=== PATIENT | female | born 1975 | race Caucasian/White ===

== ENCOUNTER 2018-11-26 08:35 | Observation (INO) ==
[2018-11-26] MEDS ORDERED: OXYCODONE Oral CONC 10 MG/0.5 ML ORAL.SYG SL ONE (09:52)
[2018-11-26] MEDS ORDERED: cefOXitin 2,000 MG in Water for inj. (sterile) 20 ML 20 ML IVP ONE (09:57)
[2018-11-26] MEDS ORDERED: Ketorolac 15 MG/ML VIAL IVP ONE (09:57)
[2018-11-26] MEDS ORDERED: 0.9 % Sodium Chloride 1,000 ML IVC SCH ×2 (10:00→19:09)
--- NOTE | 2018-11-26 13:45 | Event Note ---
Date of Encounter: 11/26/18 Time of Encounter: 13:42 - Patient Status Disposition: Home, Self-Care - Discharge Instructions Instructions: Laparoscopic Cholecystectomy (DC) Follow Up With: Fara Farmer DO [Primary Care Provider] - Kelle Quinones CNP [Advanced Practice Nurse] - 12/10/18 2:45 pm Additional Instructions: General Surgical Discharge Instructions 1. No pushing, pulling, or lifting greater than 15 lbs for 2 weeks. 2. You may shower beginning today, but no tub baths, soaking, or swimming for 2 weeks. 3. You may resume driving when you are off narcotics and are safe to react in a car. 4. Take ibuprofen every 8 hours for discomfort. If this does not relieve discomfort, you may take the as needed Percocet. Take narcotics as directed. Do not take more narcotics then directed and do not share your narcotics with any other person. Do not drink alcohol while on narcotics. 5. Take stool softeners (Colace) or a water based laxative (Miralax) while taking narcotics. You may hold for loose stools. 6. Report any fevers greater than 100.5F, increase abdominal discomfort, drainage that looks like pus, increased redness or pain at the surgical site, or any vomiting. 7. Report any pain in the calves, shortness of breath, or rapid heartbeat. 8. Follow-up in the office as directed. 9. If you were prescribed antibiotics, do not stop them without talking to your provider. - Diet and Activity Activity: increase activity as tolerated Diet: advance to your usual diet
[2018-11-26] MEDS ORDERED: *HR* Promethazine 25 MG/ML VIAL IVP PRN ×2 (13:50→18:11)
[2018-11-26] MEDS ORDERED: Ondansetron 4 MG/2 ML VIAL IVP PRN ×2 (13:50→19:09)
[2018-11-26] MEDS ORDERED: Naloxone 0.4 MG/ML INJ IVP PRN (13:50)
[2018-11-26] MEDS ORDERED: OXYCODONE Oral CONC 10 MG/0.5 ML ORAL.SYG SL PRN (13:50)
--- NOTE | 2018-11-26 13:55 | General Surg History&Physical ---
Date of Encounter: 11/26/18 Time of Encounter: 10:00 Assessment and Plan (1) Acute cholecystitis Current Visit: Yes Status: Acute The assessment and plan as outlined above was discussed with the patient and/or family members who expressed understanding and agreement. All questions were answered. Patient directed budgeted from office by Dr. Eldridge for acute cholecystitis with plans for robotic cholecystectomy with ICG choliangiogram today. Risks, shanta efits, and expected outcomes were reviewed with the patient by Dr. Eldridge in the office and she is agreeable to proceed. See hard chart for her H&P. Plan: NPO IV fluids IV antibiotics supportive care and discomfort management G.I. and DVT prophylaxis History of Present Illness HPI: Ms. Bolivar is a 43 year old female Past Med Surg Social Fam HX - Past Medical History Medical history: no medical history, other Additional medical history: celiac. gastroparesis. gerd. microscopic cholitis Psychiatric history: anxiety - Past Surgical History Additional surgical history: bladder surgery, tubal ligation, right wrist surgery - Social History Smoking Status: Never smoker Alcohol use: none Drug use: none - Family History Mother Age: 61 Living Status: Still Living Hx Family Cardiac Disorders: Yes (htn) Hx Family Musculoskeletal Disorders: Yes (fibromyalgia) Medications and Allergies Hyoscyamine SL [Levsin SL] 0.125 mg SL TID #14 tab.subl 11/24/18 [Rx] Promethazine [Phenergan] 12.5 mg PO Q6HR #6 tablet 11/24/18 [Rx] Buspirone HCl [Buspar] 10 mg PO BID 11/26/18 [History] Allergy/AdvReac Type Severity Reaction Status Date / Time No Known Allergies Allergy Verified 11/26/18 09:21 Review of Systems All systems PM: The remainder of the systems were reviewed and are negative General Surgery Exam Initial Vital Signs Temp Pulse Resp BP Pulse Ox 98.2 F 144 20 107/84 96 11/26/18 09:07 11/26/18 09:07 11/26/18 09:07 11/26/18 09:07 11/26/18 09:07 Results - Labs All other labs normal.
[2018-11-26] MEDS ORDERED: Pantoprazole 40 MG VIAL IVP SCH (14:00)
[2018-11-26] MEDS ORDERED: Isovue-300 50 ML VIAL ONE (15:31)
[2018-11-26] MEDS ORDERED: *HR* Propofol 200 MG/20 ML VIAL IVP ONE (15:37)
[2018-11-26] MEDS ORDERED: Dexamethasone 4 MG/ML VIAL ONE (15:37)
[2018-11-26] MEDS ORDERED: Lidocaine -MPF 2% 2 ML VIAL ONE (15:37)
[2018-11-26] MEDS ORDERED: *HR* FentaNYL (PF) 100 MCG/2 ML VIAL ONE (15:37)
[2018-11-26] MEDS ORDERED: *HR* Rocuronium Bromide 50 MG/5 ML VIAL ONE (15:37)
[2018-11-26] MEDS ORDERED: *HR* Midazolam HCl 2 MG/2 ML VIAL ONE (15:37)
[2018-11-26] MEDS ORDERED: Lidocaine -MPF 4% 5 ML AMPUL ONE (15:37)
[2018-11-26] MEDS ORDERED: *HR* Succinylcholine 200 MG/10 ML VIAL IVP ONE (15:37)
[2018-11-26 15:42] LABS: Basophils % 0.1 %; Eosinophils % 0.2 %; Hematocrit 39.6 % (35.3-44.9); Immature Granulocytes % 0.6 % (0-4); Lymphocytes # 2.3 K/mcL (0.6-4.6); Lymphocytes % 11.4 %; Mean Corpuscular HGB Conc 32.8 g/dL (31.6-35.5); Mean Corpuscular Hemoglobin 29.9 pg (28.0-33.3); Mean Platelet Volume 9.2 fL (9.4-12.4); Monocytes # 1.5 K/mcL (0.0-1.3); Monocytes % 7.3 %; Neutrophils # 16.2 K/mcL (1.6-8.9); Platelet Count 306 K/mcL (140-400); Red Blood Count 4.35 M/mcL (3.82-4.97); Red Cell Distribution Width 13.8 % (11.5-14.5); Segmented Neutrophils % 80.4 %
[2018-11-26 15:49] LABS: INR 1.4
[2018-11-26 15:58] LABS: BUN/Creatinine Ratio 14 (6-26); Blood Urea Nitrogen 10 mg/dL (6-20); Calcium 8.9 mg/dL (8.6-10.3); Carbon Dioxide 27 mEq/L (23-29); Chloride 101 mEq/L (98-107); Glucose 93 mg/dL (70-105); Osmolality,Calculated 277 (280-300); Potassium 3.4 mEq/L (3.5-5.1); Sodium 134 mEq/L (136-145); eGFR For Non-African Americans > 60 (> 60)
--- NOTE | 2018-11-26 16:44 | Anesthesia Evaluation PreOp ---
Date of Encounter: 11/26/18 Time of Encounter: 16:42 - Past History Planned Operation: Lap cholecystectomy Cardiac History: Denies any Significant Hx Pulmonary History: Denies Any Significant HX BARNWORKER GROOM History: Denies Any Significant HX Other Medical History: GERD, Other (celiac disease, gastroparesis) Anesthesia History: No Prior Anesthetic Complications (except combative after her wrist surgery) Alcohol Use: none Drug use: none Medications and Allergies Hyoscyamine SL [Levsin SL] 0.125 mg SL TID #14 tab.subl 11/24/18 [Rx] Promethazine [Phenergan] 12.5 mg PO Q6HR #6 tablet 11/24/18 [Rx] Buspirone HCl [Buspar] 10 mg PO BID 11/26/18 [History] Allergy/AdvReac Type Severity Reaction Status Date / Time No Known Allergies Allergy Verified 11/26/18 09:21 - Meds/Allergy Pre-op Review Medications Reviewed: Yes Allergies Reviewed: Yes Beta Blockers on Current Med List: No Anesthesia Results - Labs 11/26/18 15:18 11/26/18 15:18 Anesthesia Exam Last Vital Signs Temp 98.9 F 11/26/18 14:15 Pulse 109 11/26/18 14:15 Resp 18 11/26/18 14:15 BP 107/48 11/26/18 14:15 Pulse Ox 97 11/26/18 14:15 Weight: 97 kg NPO (# of Hours): > 8 hrs - HEENT Pupil (Motor): Pupils equal, EOMI Mallampati: III Teeth: Normal Oral Opening: Greater than 3 - BARNWORKER GROOM LOC: Oriented - Cardiac Rhythm: Regular Murmur: None - Pulmonary Breath Sounds: bilateral Clear Respiratory Effort: Symmetrical Anesthesia Assess/Plan ASA Score: 2 Level of consciousness: Cooperative Anesthetic Plan: General Monitoring Plan: Standard Monitors Recovery Plan: PACU
[2018-11-26] MEDS ORDERED: Neostigmine Methylsulfate 3 MG/3 ML SYRINGE ONE (17:02)
[2018-11-26] MEDS ORDERED: *HR* PHENYLEPHRINE 1,000 MCG/10 ML SYRINGE IVP ONE (17:04)
--- NOTE | 2018-11-26 17:48 | Operative Note ---
Date of procedure: 11/26/18 Pre-op diagnosis: Acute cholecystitis Post-op diagnosis: same Procedure: Laparoscopic cholecystectomy with cholangiogram Anesthesia: PRAVEENA Surgeon: Raymundo Eldridge Was there an sales assistants and salespersons present: Yes Roll Former: Neeru Dewey Estimated blood loss (cc): 5 Specimen: Gallbladder Condition: stable Disposition: same day Procedure in Detail: After informed consent, the patient was taken the operating room placed in the supine position. After adequate sedation and anesthesia the abdomen was prepped and draped. A pneumoperitoneum was created. A 5 mm cannulas placed leveling umbilicus. A 12 mm cannulas placed subxiphoid region. 25 mm cannulas were placed in the right upper quadrant. The gallbladder was identified, retracted anteriorly and cephalad. Infundibulum was dissected free. Cystic duct was skeletonized. A clip was placed distally and a duct ostomy was created. A cholangiogram was then performed through a taut catheter. Cholangiogram revealed flow into the common hepatic duct and hepatic radicals followed by flow into the common bile duct and eventually the duodenum. There are no stones identified. At this point the cholangiogram was terminated the clip was removed and the taut catheter was then removed. 2 clips are placed proximally and the duct was transected. Gallbladder was then resected free off the liver surface. It was placed in an endoscopic pouch. This is removed through the umbilical port. Hemostasis was obtained the liver bed. 19-Polish Caio drain was placed in the right upper quadrant secondary to the purulent material coming from the gallbladder. This brought out through the right upper quadrant port. Subxiphoid port was closed with 0 Vicryl suture in [id number] fashion. Skin was closed with 4-0 Vicryl suture. Incisions were injected with half percent Marcaine 30 mL's.
[2018-11-26] MEDS ORDERED: *HR* Heparin 5,000 UNIT/ML VIAL SQ SCH (18:00)
[2018-11-26] MEDS ORDERED: *HR* OxyCODONE Immed Rel 5 MG TABLET PO PRN (18:11)
[2018-11-26] MEDS ORDERED: Ringers Solution, Lactated 1,000 ML ONE (18:12)
--- NOTE | 2018-11-26 18:38 | Anesthesia Evaluation Post Op ---
Date of Encounter: 11/26/18 Time of Encounter: 18:38 - Vital Signs Vital Signs: Vital Signs/O2 Sat, Most Current Temp Pulse Resp BP Pulse Ox 101.2 F H 106 20 118/72 95 11/26/18 18:30 11/26/18 18:30 11/26/18 18:30 11/26/18 18:30 11/26/18 18:30 - Lungs Lungs: Clear Ascult./Percussion - Airway Airway: Non-obstructed - Cardiovascular Regular Rate - Mental Status Mental Status: Alert & Oriented, Answers Appropriately - Pain Pain Scale: 0 Pain Scale used: Numeric (1 - 10) - Nausea Vomiting Nausea Vomiting: Not Present - Hydration Hydration: Ice chips, Has not voided - Discharge PostOp Status: Transfer Patient to floor
[2018-11-26] MEDS: OXYCODONE Oral CONC 10 MG/0.5 ML ORAL.SYG SL PRN (20:40)
[2018-11-26] MEDS ORDERED: *HR* HYDROmorphone 2 MG/ML SYRINGE IVP PRN (22:10)
[2018-11-26] MEDS ORDERED: Ketorolac 30 MG/ML VIAL IVP ONE (22:12)
[2018-11-26] MEDS ORDERED: 0.9 % Sodium Chloride 1,000 ML IVC ONE (22:12)
[2018-11-26] MEDS ORDERED: Ketorolac 15 MG/ML VIAL IVP PRN (22:13)
[2018-11-26] MEDS: Ampicillin/Sulbactam 3,000 MG in 0.9 % Sodium Chloride Mini Bag 100 ML IVPB SCH (23:05)
[2018-11-27] MEDS: OXYCODONE Oral CONC 10 MG/0.5 ML ORAL.SYG SL PRN (05:20)
[2018-11-27] MEDS: *HR* Heparin 5,000 UNIT/ML VIAL SQ SCH ×2 (05:21→17:58)
[2018-11-27] MEDS: Ampicillin/Sulbactam 3,000 MG in 0.9 % Sodium Chloride Mini Bag 100 ML IVPB SCH ×4 (05:25→23:58)
[2018-11-27] MEDS: Pantoprazole 40 MG VIAL IVP SCH (08:59)
--- NOTE | 2018-11-27 09:05 | General Surgery Progress Note ---
Date of Encounter: 11/27/18 Time of Encounter: 08:45 - Assessment and Plan (1) Acute cholecystitis Current Visit: Yes Status: Acute POD #[address] Eldridge IV fluids- 80ml/hour IV antibiotics- Unasyn Continue DILMA drain- drain education Gluten free diet Repeat CBC, BMP now Supportive care and pain control- prn Percocet added IS every 1 hour while awake Ambulate hallways TID with assistance Strict I&Os (2) DVT prophylaxis Current Visit: Yes Status: Acute Heparin 5,000 units SQ twice daily for DVT prophylaxis Ambulate hallways TID with assistance Subjective Patient reports: no new complaints, feels better, still having pain, pain is less, tolerating a regular diet, voiding w/o difficulty, no flatus, no bowel movement, fever (Tmax 101.8; Tcurrent 97.9) Objective Vital Signs - Last 8 Hours Temp Pulse Resp BP Pulse Ox 11/27/18 05:25 97.9 F 96 18 99/61 94 Intake and Output 11/26/18 11/27/18 11/27/18 23:59 07:59 15:59 Intake Total 574 / 574 Output Total 235 / 235 275 / 275 Balance 339 / 339 -275 / -275 Intake: IV Fluids 100 / 100 Unasyn 3,000 MG In 0.9 % Sodium 100 / 100 Chloride (Mini-Bag +) 100 ML @ 200 mls/hr IVPB Q6HR [facility] Rx#: [id number] Oral 474 / 474 Output: Urine 250 / 250 Estimated Blood Loss 50 / 50 Other 30 / 30 Wound Drainage 155 / 155 25 / 25 Right Abdomen 20 / 20 25 / 25 Other: # Voids 1 - General physical appearance well developed, well nourished, no distress, obese - Eyes normal ocular movement - ENT normal mucosa, atraumatic, normocephalic - Neck Neck exam: trachea midline - Respiratory normal respiratory effort, clear to auscultation, other (diminished bibasilar bases) - Cardiovascular Cardiovascular exam: Present: tachycardia - Abdomen Abdomen: Present: bowel sounds present, soft, tender (expected post-operative tenderness), wound (DILMA drain to bulb suction RUQ with sanguineous drainage noted) - Incision Incision: Present: clean and dry, intact - Neurologic CN 2-12 grossly intact - Psychiatric oriented to time, oriented to person, oriented to place, speech is normal, memory intact - Labs 11/26/18 15:18 11/26/18 15:18 Diabetes panel 11/26/18 Range/Units 15:18 Sodium 134 L (136-145) mEq/L Potassium 3.4 L (3.5-5.1) mEq/L Chloride 101 (98-107) mEq/L Carbon Dioxide 27 (23-29) mEq/L BUN 10 (6-20) mg/dL Creatinine 0.73 (0.60-1.20) mg/dL Glucose 93 (70-105) mg/dL Calcium 8.9 (8.6-10.3) mg/dL Calcium panel 11/26/18 Range/Units 15:18 Calcium 8.9 (8.6-10.3) mg/dL Pituitary panel 11/26/18 Range/Units 15:18 Sodium 134 L (136-145) mEq/L Potassium 3.4 L (3.5-5.1) mEq/L Chloride 101 (98-107) mEq/L Carbon Dioxide 27 (23-29) mEq/L BUN 10 (6-20) mg/dL Creatinine 0.73 (0.60-1.20) mg/dL Glucose 93 (70-105) mg/dL Calcium 8.9 (8.6-10.3) mg/dL Adrenal panel 11/26/18 Range/Units 15:18 Sodium 134 L (136-145) mEq/L Potassium 3.4 L (3.5-5.1) mEq/L Chloride 101 (98-107) mEq/L Carbon Dioxide 27 (23-29) mEq/L BUN 10 (6-20) mg/dL Creatinine 0.73 (0.60-1.20) mg/dL Glucose 93 (70-105) mg/dL Calcium 8.9 (8.6-10.3) mg/dL - VTE Documentation of Mechanical Device: Intermittent pneumatic compression device Consult Discharge Plan - Plan Instructions: Laparoscopic Cholecystectomy (DC) Additional Instructions: General Surgical Discharge Instructions 1. No pushing, pulling, or lifting greater than 15 lbs for 2 weeks. 2. You may shower beginning today, but no tub baths, soaking, or swimming for 2 weeks. 3. You may resume driving when you are off narcotics and are safe to react in a car. 4. Take ibuprofen every 8 hours for discomfort. If this does not relieve discomfort, you may take the as needed Percocet. Take narcotics as directed. Do not take more narcotics then directed and do not share your narcotics with any other person. Do not drink alcohol while on narcotics. 5. Take stool softeners (Colace) or a water based laxative (Miralax) while taking narcotics. You may hold for loose stools. 6. Report any fevers greater than 100.5F, increase abdominal discomfort, drainage that looks like pus, increased redness or pain at the surgical site, or any vomiting. 7. Report any pain in the calves, shortness of breath, or rapid heartbeat. 8. Follow-up in the office as directed. 9. If you were prescribed antibiotics, do not stop them without talking to your provider. Referrals: Kelle Quinones, LYN [Advanced Practice Nurse] - 12/10/18 2:45 pm Fara Farmer DO [Primary Care Provider] - - Attending Attestation For this encounter, I have reviewed the DELIVERY LEAD or PA documentation, treatment plan, and medical decision making; and I have had face to face time with this patient.
[2018-11-27] MEDS: *HR* OxyCODONE/APAP 5/325 TABLET PO PRN ×3 (10:32→20:18)
[2018-11-27 12:10] LABS: Basophils % 0.1 %; Hematocrit 33.1 % (35.3-44.9); Immature Granulocytes % 0.7 % (0-4); Lymphocytes # 1.7 K/mcL (0.6-4.6); Lymphocytes % 8.9 %; Mean Corpuscular HGB Conc 32.6 g/dL (31.6-35.5); Mean Corpuscular Hemoglobin 29.8 pg (28.0-33.3); Mean Corpuscular Volume 91.2 fL (83.0-100.0); Mean Platelet Volume 9.4 fL (9.4-12.4); Monocytes # 1.1 K/mcL (0.0-1.3); Monocytes % 5.6 %; Neutrophils # 16.3 K/mcL (1.6-8.9); Platelet Count 307 K/mcL (140-400); Red Blood Count 3.63 M/mcL (3.82-4.97); Segmented Neutrophils % 84.7 %
[2018-11-27 12:15] LABS: Hemoglobin 10.8 g/dL (11.5-15.4)
[2018-11-27 12:31] LABS: BUN/Creatinine Ratio 16 (6-26); Blood Urea Nitrogen 10 mg/dL (6-20); Calcium 8.5 mg/dL (8.6-10.3); Carbon Dioxide 25 mEq/L (23-29); Chloride 106 mEq/L (98-107); Glucose 120 mg/dL (70-105); Osmolality,Calculated 288 (280-300); Potassium 3.9 mEq/L (3.5-5.1); Sodium 139 mEq/L (136-145); eGFR For Non-African Americans > 60 (> 60)
[2018-11-27] MEDS ORDERED: 0.9 % Sodium Chloride 1,000 ML IVC SCH (14:02)
[2018-11-28] MEDS: *HR* OxyCODONE/APAP 5/325 TABLET PO PRN ×2 (02:59→08:13)
[2018-11-28] MEDS: *HR* Heparin 5,000 UNIT/ML VIAL SQ SCH (05:47)
[2018-11-28] MEDS: Ampicillin/Sulbactam 3,000 MG in 0.9 % Sodium Chloride Mini Bag 100 ML IVPB SCH ×2 (05:48→12:08)
[2018-11-28 06:17] LABS: Basophils % 0.1 %; Eosinophils % 0.3 %; Hematocrit 30.1 % (35.3-44.9); Hemoglobin 9.7 g/dL (11.5-15.4); Immature Granulocytes % 0.4 % (0-4); Lymphocytes # 1.7 K/mcL (0.6-4.6); Lymphocytes % 15.4 %; Mean Corpuscular HGB Conc 32.2 g/dL (31.6-35.5); Mean Corpuscular Hemoglobin 29.4 pg (28.0-33.3); Mean Corpuscular Volume 91.2 fL (83.0-100.0); Mean Platelet Volume 9.3 fL (9.4-12.4); Monocytes # 0.7 K/mcL (0.0-1.3); Monocytes % 6.7 %; Neutrophils # 8.6 K/mcL (1.6-8.9); Platelet Count 267 K/mcL (140-400); Red Cell Distribution Width 13.8 % (11.5-14.5); Segmented Neutrophils % 77.1 %
[2018-11-28] MEDS: Pantoprazole 40 MG VIAL IVP SCH (08:13)
[2018-11-28 08:31] VITALS: BP 107/78
--- NOTE | 2018-11-28 09:59 | Discharge Summary ---
Orders not resulted at time of discharge: Pending orders 11/26/18 17:36 Surgical Pathology [PTH] Routine Date of Encounter: 11/28/18 Time of Encounter: 11:30 - Discharge Diagnosis (1) Acute cholecystitis Priority: Primary Status: Resolved General Surgery Exam Initial Vital Signs Temp Pulse Resp BP Pulse Ox 98.2 F 144 20 107/84 96 11/26/18 09:07 11/26/18 09:07 11/26/18 09:07 11/26/18 09:07 11/26/18 09:07 Vital Signs Temp Pulse Resp BP Pulse Ox 11/28/18 08:00 98.2 F 83 16 107/78 94 11/28/18 06:00 93 11/28/18 03:12 94 11/28/18 03:10 97.7 F 89 16 104/67 89 11/28/18 00:00 98.2 F 82 18 92/55 94 11/27/18 20:18 98.5 F 93 18 122/80 98 11/27/18 16:00 98.5 F 110 18 117/70 94 Intake and Output 11/27/18 11/28/18 11/28/18 23:59 07:59 15:59 Intake Total 680 / 680 580 / 580 300 / 300 Output Total 568 / 568 228 / 228 Balance 112 / 112 352 / 352 300 / 300 Intake: IV Fluids 100 / 100 200 / 200 Unasyn 3,000 MG In 0.9 % Sodium 100 / 100 200 / 200 Chloride (Mini-Bag +) 100 ML @ 200 mls/hr IVPB Q6HR [facility] Rx#: [id number] Oral 580 / 580 380 / 380 300 / 300 Output: Urine 550 / 550 200 / 200 Wound Drainage Right Abdomen Other: Meal Dinner Percent of Meal Consumed 30% VITAL SIGNS: Reviewed. See [facility] GENERAL: In no apparent distress. HEENT: Normocephalic, atraumatic, pupils are equal and reactive, extraocular motions intact, oropharynx is pink and moist, there is no neck adenopathy or JVD noted. CHEST/RESPIRATORY: The thorax is free from signs of trauma. Lung sounds: clear to auscultation, normal respiratory effort CARDIAC: Regular rate and rhythm. Normal S1 and S2, without murmurs, gallops, or rubs. VASCULAR: No Edema. 2+ peripheral pulses. ABDOMEN: soft, expected postoperative tenderness, active bowel sounds INCISION: Surgical incision is clean, dry, and intact. There are no signs of ce llulitis or infection noted. WOUNDS/DRAINS: DILMA drain site is within normal limits. There is a small amount of serosanguineous output in the DILMA drain. MUSCULOSKELETAL: Good range of motion of all major joints. Extremities without clubbing, cyanosis or edema. NEUROLOGIC EXAM: Alert and oriented x 3. Speech normal. Follows commands. PSYCHIATRIC: Mood normal. SKIN: No rash or lesions. - Hospital Course Hospital course: Ms. Bolivar is a 43 year old female who presented on 11/26/2018 is a direct admit from the office for acute appendicitis. She was taken to the operating room where she underwent an uncomplicated laparoscopic cholecystectomy with intraoperative cholangiogram and placement of the 19 Indonesian Caio drain due to purulent material coming from the gallbladder. Her hospital course was relatively uncomplicated. She is ambulating avoiding without difficulty, to lerating diet without nausea or vomiting, vital signs are stable, and she is afebrile. We will begin discharge planning to home with a follow-up in the office in one week for a drain check. Her is at bedside and states he will care for her drain home. - Time Spent with Patient Total time spent providing and/or coordinating discharge services: - Discharge Medications Prescriptions: Ondansetron ODT [Zofran ODT] 4 mg SL Q4HR PRN #15 tab.rapdis PRN Reason: Postsurgical nausea OxyCODONE/APAP 5/325 [Percocet 5/325 MG] 1 each PO Q6HR PRN 7 Days #28 tablet PRN Reason: Pain Amoxicillin/Clavulanate [Augmentin] 875 mg PO BIDWM 7 Days #14 tablet Docusate Sodium [Colace] 100 mg PO BID PRN #30 capsule PRN Reason: Contstipation Home Medications: Hyoscyamine SL [Levsin Sl] 0.125 mg SL TID #14 tab.subl 11/24/18 [Rx] Promethazine [Phenergan] 12.5 mg PO Q6HR #6 tablet 11/24/18 [Rx] Buspirone HCl [Buspar] 10 mg PO BID 11/26/18 [History] Amoxicillin/Clavulanate [Augmentin] 875 mg PO BIDWM 7 Days #14 tablet 11/28/18 [Rx] Docusate Sodium [Colace] 100 mg PO BID PRN #30 capsule 11/28/18 [Rx] Ondansetron ODT [Zofran ODT] 4 mg SL Q4HR PRN #15 tab.rapdis 11/28/18 [Rx] OxyCODONE/APAP 5/325 [Percocet 5/325 MG] 1 each PO Q6HR PRN 7 Days #28 tablet 11/28/18 [Rx] Allergies/Adverse Reactions: Allergy/AdvReac Type Severity Reaction Status Date / Time No Known Allergies Allergy Verified 11/26/18 09:21 Date of admission: 11/26/18 08:47 Primary care physician: Fara Farmer DO Discharging clinician: Kelle Quinones Anticipated date of discharge: 11/28/18 Labs on day of discharge: Labs from last 24 hours 11/28/18 11/27/18 11/27/18 05:57 11:18 11:18 WBC 11.1 19.3 H RBC 3.30 L 3.63 L Hgb 9.7 L 10.8 L D Hct 30.1 L 33.1 L MCV 91.2 91.2 MCH 29.4 29.8 MCHC 32.2 32.6 RDW 13.8 14.0 Plt Count 267 307 MPV 9.3 L 9.4 Immature Gran % 0.4 0.7 Seg Neutrophils % 77.1 84.7 Lymphocytes % 15.4 8.9 Monocytes % 6.7 5.6 Eosinophils % 0.3 0.0 Basophils % 0.1 0.1 Neutrophils # 8.6 16.3 H Lymphocytes # 1.7 1.7 Monocytes # 0.7 1.1 Eosinophils # 0.0 0.0 Basophils # 0.0 0.0 Sodium 139 Potassium 3.9 Chloride 106 Carbon Dioxide 25 BUN 10 Creatinine 0.62 Est GFR ( Amer) > 60 Est GFR (Non-Af Amer) > 60 BUN/Creatinine Ratio 16 Glucose 120 H Calculated Osmolality 288 Calcium 8.5 L - Impressions ITS Impressions Cholangiogram,Operative 11/26/18 15:37 IMPRESSION: Unremarkable intraoperative cholangiogram status post cholecystectomy. D/ / Amari Barbosa MD / Amari Barbosa MD Interpreting Provider: Amari Barbosa MD - Patient Status Disposition: Home, Self-Care Condition: Good Functional capacity at discharge: independent ambulation - Discharge Instructions Instructions: Laparoscopic Cholecystectomy (DC) Follow Up With: Fara Farmer DO [Primary Care Provider] - Kelle Quinones DIGITAL ARTIST [Advanced Practice Nurse] - 12/10/18 2:45 pm (Please follow- up 12/05/2018 at 0900 for drain check) Additional Instructions: General Surgical Discharge Instructions 1. No pushing, pulling, or lifting greater than 15 lbs for 2 weeks. 2. You may shower beginning today, but no tub baths, soaking, or swimming for 2 weeks. 3. You may resume driving when you are off narcotics and are safe to react in a car. 4. 650 mg Acetaminophen every 8 hours. If this does not relieve discomfort, you may take the as needed Percocet every 6 hours (so that you area alternating pain meds). Take narcotics as directed. Do not take more narcotics then directed and do not share your narcotics with any other person. Do not drink alcohol while on narcotics. 5. Take stool softeners (Colace) or a water based laxative (Miralax) while taking narcotics. You may hold for loose stools. 6. Report any fevers greater than 100.5F, increase abdominal discomfort, drainage that looks like pus, increased redness or pain at the surgical site, or any vomiting. 7. Report any pain in the calves, shortness of breath, or rapid heartbeat. 8. Follow-up in the office as directed. 9. If you were prescribed antibiotics, do not stop them without talking to your provider Daily DILMA Drain Care: 1. Remove dressings. Shower with antibacterial soap. 2. Do not let the DILMA drain dangle from your body. Use the safety pin to secure to your clothing. Secure the DILMA to a lanyard or other type of long necklace when you shower. 3. Replace drain gauze and taped to secure. 4. Record the output from your DILMA bulb (at least once daily) on the form provided and bring this with you to your follow-up appointment. 5. Keep the DILMA drain to suction (squeeze the bulb and replace the cap while squeezing). 6. Strip the lines twice daily (hold onto the line as close to the body as you can, then with the other hand push the contents of the line into the DILMA bulb). - Diet and Activity Activity: increase activity as tolerated Diet: advance to your usual diet
== END 2018-11-28 16:18 | disposition home or self-care (01) ==
LOC: 1NENUPED
PROVIDERS: ADMIT Surgery; ATTEND Surgery